=== PATIENT | male | born 1960 | race Caucasian/White ===

== ENCOUNTER 2016-07-29 19:54 | Emergency (ER) | payer OTHER ==
[2016-07-29 20:25] VITALS: BP 158/98
[2016-07-29] MEDS ORDERED: CYCL5TAB PO (20:29)
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
== END 2016-07-29 20:25 | disposition home or self-care (01) ==
LOC: ER 19:55
DX: M54.6 Pain in thoracic spine (principal); K21.9 Gastro-esophageal reflux disease without esophagitis; V47.5XXA Car driver injured in collision with fixed or stationary object in traffic accident, initial encounter; Y93.I9 Activity, other involving external motion; Y92.410 Unspecified street and highway as the place of occurrence of the external cause; Y99.8 Other external cause status
CPT/HCPCS: 99283